=== PATIENT | female | born 1995 | race Caucasian/White ===

== ENCOUNTER 2016-06-29 15:52 | Outpatient (CLI) | payer OTHER ==
[~2016-06-29] VITALS: Ht 157.5 cm; Wt 95.5 kg
[2016-06-29 16:12] VITALS: BP 112/62; PULSE 96; RESP 19
[2016-06-29 16:14] VITALS: Ht 157.5 cm; Wt 95.5 kg
[2016-06-29 18:46] LABS: ADD UMIC NO; URINE BILIRUBIN (Dip) NEGATIVE (NEGATIVE); URINE BLOOD (Dip) NEGATIVE (NEGATIVE); URINE COLOR LT. YELLOW (YELLOW); URINE GLUCOSE (Dip) NEGATIVE (NEGATIVE); URINE KETONES (Dip) NEGATIVE (NEGATIVE); URINE LEUKOCYTE ESTERASE (Dip) NEGATIVE (NEGATIVE); URINE NITRITE (Dip) NEGATIVE (NEGATIVE); URINE TOTAL PROTEIN (Dip) NEGATIVE (NEGATIVE); URINE UROBILINOGEN (Dip) 0.2 E.U./dL (0.1-1.0)
--- NOTE | 2016-06-29 18:58 | PN ---
Date/Time of Note Date/Time of Note DATE: 06/29/16 TIME: 18:48 OB Subjective Subjective Subjective Laboratory Tests Test 06/29/16 16:00 Urine Bilirubin NEGATIVE Urine Clarity CLEAR Urine Color LT. YELLOW Urine Glucose NEGATIVE% Urine Hemoglobin NEGATIVE Urine Ketones NEGATIVE Urine Leukocyte Esterase NEGATIVE Urine Nitrite NEGATIVE Urine Specific [place] 1.020 Urine Total Protein NEGATIVE Urine Urobilinogen 0.2 E.U./dL Urine pH 7.0 June 29, 2016 This is a OB triage consult note The patient came to the triage today is a 21 years old 3 para 2 0. She had both of her deliveries were by section in the past Her due date is 08/09/2006 She is now 34 weeks and 1 day . She came in the triage area complaining of a bloody show and lower abdominal pain On examination she was a well-developed well-nourished lady about 34 weeks Her vital signs were stable Blood pressure 112/62, pulse rate 96 she is describing her pain as 5/10 in intensity. On examination of the abdomen through there were not much of tenderness, lower abdominal area was not tender. She is complaining of slight low back pain Due to complaint of possible bleeding I did a pelvic exam: vulva and vagina was normal and she has a slight white cheesy color discharge No brown or bloody discharge On ultrasound study which was performed biophysical profile was 8 out of 8 NST was reactive Urinalysis were normal culture sensitivity and UA was ordered disposition Due to lack of any evidence of abruption or bleeding patient was reassured and sent home to be seen by her physician in the clinic JYOTI GUAN MD Jun 29, 2016 18:58
--- NOTE | 2016-06-29 18:58 | RADRPT ---
PROCEDURE: US OB. CLINICAL INDICATION: Bleeding TECHNIQUE: Multiple sonographic images of the pelvis were obtained. The images were reviewed on a PACS workstation. COMPARISON: No prior studies are available for comparison. FINDINGS: There is a single live intrauterine . cardiac activity is identified at a rate of 13 3 beats per minute. presentation is cephalic. Placenta is anterior grade tube. Biophysical profile score is as follows: Breathing 2 Movements 2 Tone 2 Fluid volume 2 Amniotic fluid index = 20.1 cm Total biophysical profile score = 8/8 IMPRESSION: Biophysical profile score = 8/8 Borderline polyhydramnios RPTAT: HH .Theodore Myers MD, MD Date Time Electronically viewed and signed by .Theodore Myers MD, on 06/29/2016 18:57 .W/
--- NOTE | 2016-06-29 22:27 | TRIAGE ---
OB Triage Datetime Report Generated by CPN: 06/29/2016 22:27 Datetime: 06/29/2016 20:00 Stage of : OB Triage Labor Evaluation Frequency: Irregular Monitor Mode: External Duration (sec)2399: 50-70 Pattern: Normal: <= 5 Contractions in 10 Minutes Resting Tone [place]: Relaxed Heart Rate FHR Baseline Rate: 130 Monitor Mode: External US Variability: Moderate 6-25 bpm Accelerations: 15X15 Decelerations: None Category: Category I Pain Presence: None/Denies Datetime: 06/29/2016 19:01 Labor Evaluation Frequency: IRREG Monitor Mode: External Duration (sec)2399: 60-90 Pattern: Normal: <= 5 Contractions in 10 Minutes Resting Tone [place]: Relaxed Heart Rate FHR Baseline Rate: 130 Monitor Mode: External US Variability: Moderate 6-25 bpm Accelerations: 15X15 Decelerations: None Category: Category I Pain Presence: None/Denies Datetime: 06/29/2016 18:14 Pain Assessment Comments: PT. DENIES PAIN AT THIS TIME Vaginal Exam Dilatation (cms): 0.0 Effacement (%): 0 Station: -3 Exam By: DR. FOROOHAR Datetime: 06/29/2016 18:06 Labor Evaluation Frequency: IRREG Duration (sec)2399: 40-80 Pattern: Normal: <= 5 Contractions in 10 Minutes Resting Tone [place]: Relaxed Heart Rate FHR Baseline Rate: 130 Monitor Mode: External US Variability: Moderate 6-25 bpm Accelerations: 15X15 Decelerations: None Category: Category I Pain Presence: None/Denies Datetime: 06/29/2016 16:53 Labor Evaluation Frequency: X1 Monitor Mode: External Duration (sec)2399: 50 Pattern: Normal: <= 5 Contractions in 10 Minutes Resting Tone [place]: Relaxed Heart Rate FHR Baseline Rate: 140 Monitor Mode: External US Variability: Moderate 6-25 bpm Accelerations: 15X15 Decelerations: None Category: Category I Datetime: 06/29/2016 16:27 EGA: 34.1 Datetime: 06/29/2016 16:20 Time of Arrival: 06/29/2016 15:49 Arrived By: Ambulatory Arrived From: Home Chief Complaint: BLOODY SHOW; LEFT LOWER ABDOMINAL PAIN Movement: Present Contractions: Denies/Absent Rupture of Membranes: Denies Vaginal Bleeding: Normal Show Vaginal Discharge: Denies Recent Sexual Intercouse: Denies Abdominal Trauma: Not Applicable Patient Complaints: Cramping Additional Patient Complaints: SVE 0/0/-3, INTACT BY DR. GUAN, BPP, U/A, C_S, PLACENTA LOCATIO N Provider Notified: ROGE Initial Plan: TOCO/US Datetime: 06/29/2016 16:10 Assessment Type: Admission Assessment Maternal Assessment Level of Consciousness: Fully Conscious DTR's/Clonus: DTRs 2+; No Clonus Headache: Denies Blurred Vision: No Respiratory Effort: Unlabored; Regular Rhythm; Equal Expansion Breath Sounds, Left: Clear and Equal Breath Sounds, Right: Clear and Equal Nausea/Vomiting: Denies RUQ Epigastric Pain: Denies Lower Extremities Edema: None Degree: None Upper Extremities Edema: None Degree: None Facial Edema: None Fall Risk Assessment History of Falling: (0) No Secondary Diagnosis: (0) No Ambulatory Aid: (0) Bedrest/Nurse Assist IV Therapy: (0) No Gait: (0) Normal/Bedrest/Immobile Mental Status: (0) Oriented to Own Ability Fall Score: 0 Fall Risk Score Definition: No Risk: No action required Datetime: 06/29/2016 16:04 Temperature Route: Oral Pain Assessment Pain Scale: 5 Pain Presence: Intermittent Pain Type: Pressure Pain Location: Abdomen (Annotations: LEFT LOWER ABDOMEN) Pain Relief Measures: Comfort Measures Datetime: 06/29/2016 15:59 Stage of : OB Triage
== END 2016-06-29 22:08 | disposition home or self-care (01) ==
LOC: OBT 15:52 → L-D 15:53 → OBT 22:08
DX: O46.93 Antepartum hemorrhage, unspecified, third trimester (principal); R10.30 Lower abdominal pain, unspecified; M54.5 Low back pain; Z3A.34 34 weeks gestation of pregnancy
CPT/HCPCS: 76818; 81003; 87086; Z7500; G0463

== ENCOUNTER 2016-06-30 13:10 | Outpatient (CLI) | payer OTHER ==
[~2016-06-30] VITALS: Ht 157.5 cm; Wt 93.8 kg
[2016-06-30 13:54] VITALS: BP 109/63; PULSE 83; RESP 18; Ht 157.5 cm; Wt 93.8 kg
--- NOTE | 2016-06-30 14:53 | RADRPT ---
PROCEDURE: US OB. CLINICAL INDICATION: Low PHIL TECHNIQUE: Transabdominal views of the pelvis are available for review. COMPARISON: Obstetrical ultrasound from 06/29/2016 FINDINGS: There is a single intrauterine gestation in a breech position. The heart rate is present at 139 bpm. The placenta is fundal and right lateral in location. There is no evidence of placenta previa or a placental abruption. The PHIL measures 15.7 cm. RPTAT: AA IMPRESSION: Normal PHIL of 15.7 cm, compared with an PHIL of 20.1 cm on the prior ultrasound study from 06/29/2016 . Breech presentation. Physician Homa Date Time Electronically viewed and signed by Physician Homa on 06/30/2016 14:52 /
[2016-07-01] MEDS ORDERED: PRENAT PO (21:09)
--- NOTE | 2016-09-26 16:51 | QN ---
Documentation Comment rule out labor HAM CABRERA MD September 26, 2016 16:51
== END 2016-06-30 16:30 | disposition home or self-care (01) ==
LOC: L-D 13:10 → OBT 13:10
PROVIDERS: ATTEND Obstetrics & Gynecology
DX: O47.00 False labor before 37 completed weeks of gestation, unspecified trimester (principal); Z3A.00 Weeks of gestation of pregnancy not specified
CPT/HCPCS: 76815; Z7500; G0463

== ENCOUNTER 2016-07-01 19:38 | Outpatient (CLI) | payer OTHER ==
[~2016-07-01] VITALS: Ht 157.5 cm; Wt 93.2 kg
[2016-07-01 21:01] VITALS: Ht 157.5 cm; Wt 93.2 kg
[2016-07-01 21:05] VITALS: BP 108/58; PULSE 93; RESP 16
[2016-07-01] MEDS ORDERED: PRENAT PO (21:09)
--- NOTE | 2016-07-01 22:23 | PN ---
Date/Time of Note Date/Time of Note DATE: 07/01/16 TIME: 22:16 OB Subjective Subjective Subjective Patient came w c/o back pain that is constant. She has had 2 prior c/d and is 34+wks gestation today; baby is breech no ctx or bleeding or lof, good FM OB Objective Objective Objective Abdomen- gravid, n/t SVE- l/c/p FHT- Cat I Mcfall- no ctx Abdomen: WNL Cervical Dilatation: None Effacement: 0% Station: -3 Membranes: Intact Accelerations: Accelerations Present Decelerations: No Decelerations Varibility: Moderate Contractions on Admission: None OB Assessment/Plan Other Assessment: 21 yo P2 @ 34 wks, prior c/d x 2, likely muscular pain - reassuring status - not in labor Other plan: d/c home labor precautions KOLBY DOUGLAS MD Jul 01, 2016 22:22
== END 2016-07-01 21:33 | disposition home or self-care (01) ==
LOC: OBT 19:38 → L-D 19:42 → OBT 21:33
PROVIDERS: ATTEND Obstetrics & Gynecology
DX: O26.893 Other specified pregnancy related conditions, third trimester (principal); M54.9 Dorsalgia, unspecified; Z3A.34 34 weeks gestation of pregnancy
CPT/HCPCS: G0463

== ENCOUNTER 2016-08-02 05:58 | Inpatient (IN) | payer OTHER ==
[~2016-08-02 05:58] MED LIST: PRENAT PO
[2016-08-02] MEDS ORDERED: LACTATED RINGER'S 1,000 ML IV SCH (07:29)
[2016-08-02] MEDS ORDERED: MISOPROSTOL 200 MCG TAB PR PRN ×2 (07:30→14:00)
[2016-08-02] MEDS ORDERED: METHYLERGONOVINE 0.2 MG INJ IM PRN ×2 (07:30→14:00)
[2016-08-02] MEDS ORDERED: CEFAZOLIN 2 GM/50 ML (PMX) 50 ML IVPB SCH (07:30)
[2016-08-02] MEDS ORDERED: CARBOPROST 250 MCG INJ IM PRN ×2 (07:30→14:00)
[2016-08-02] MEDS ORDERED: OXYTOCIN 30 UNITS/LR 500 ML IV PRN ×2 (07:30→14:00)
[2016-08-02 07:54] LABS: ADD SCAN DIFF NO
[2016-08-02 08:17] LABS: INR 0.98
[2016-08-02 08:18] LABS: PARTIAL THROMBOPLASTIN TIME 30.8 Sec (25.0-35.0)
[2016-08-02 08:21] LABS: BARBITURATES Negative (NEGATIVE); BASOPHILS % 0.2 % (0.0-2.0); BENZODIAZEPINES Negative (NEGATIVE); EOSINOPHILS # 0.1 10^3/ul (0.0-0.5); EOSINOPHILS % 1.1 % (0.0-7.0); HEMATOCRIT 35.5 % (37.0-47.0); HEMOGLOBIN 12.1 g/dl (12.0-16.0); LYMPHOCYTES # 1.6 10^3/ul (0.8-2.9); LYMPHOCYTES % 27.7 % (15.0-51.0); MEAN CORPUSCULAR HEMOGLOBIN 30.9 pg (29.0-33.0); MEAN CORPUSCULAR HGB CONC 34.1 g/dl (32.0-37.0); MEAN CORPUSCULAR VOLUME 90.6 fl (82.0-101.0); MONOCYTE # 0.4 10^3/ul (0.3-0.9); MONOCYTES % 6.2 % (0.0-11.0); NEUTROPHIL # 3.7 10^3/ul (1.6-7.5); NEUTROPHILS % 64.6 % (39.0-77.0); PLATELET COUNT 224 10^3/UL (140-415); RED BLOOD COUNT 3.92 10^6/ul (4.20-5.40); RED CELL DISTRIBUTION WIDTH 13.2 % (11.5-14.5); WHITE BLOOD COUNT 5.7 10^3/ul (4.8-10.8)
[2016-08-02] MEDS ORDERED: METOCLOPRAMIDE 10 MG INJ ONE (08:31)
[2016-08-02] MEDS ORDERED: ONDANSETRON 4 MG INJ ONE (08:31)
[2016-08-02] MEDS ORDERED: OXYTOCIN 10 UNIT INJ ONE (08:31)
[2016-08-02] MEDS ORDERED: OXYTOCIN 30 UNITS/LR 500 ML IV ONE (08:31)
[2016-08-02] MEDS ORDERED: EPHEDrine SULFATE 50 MG/5 ML SYG ONE (08:31)
[2016-08-02 08:35] LABS: CANNABINOIDS Negative (NEGATIVE); COCAINE Negative (NEGATIVE); OPIATES Negative (NEGATIVE)
[2016-08-02] MEDS ORDERED: morphine SULFATE/PF (10 MG/10 ML) INJ ONE (09:10)
--- NOTE | 2016-08-02 09:28 | HP ---
Date/Time of Note Date/Time of Note DATE: 08/02/16 TIME: 09:05 OB - History Hx of Present Free Text/Dictation 21 years old female 39 weeks with EDC August 09, 2016, history of 2 previous admitted to [facility] [place] labor and delivery being prepared for repeat for the third time This patient had limited visit to [facility] and has a history of substance abuse denies using illicit drug once she found out that she is Past history menarche at age 11 history of total of 4 pregnancies including the present one induced 2 previous sectio Allergies denies allergy to any known medication Social positive history for using marijuana crystal meth amphetamine, and so mother elicit drugs Review of system within normal Laboratory, urine test for for drug negative Physical examination 5 feet 2 212 pounds Head ears nose and throat neck Neck supple no thyromegaly Lungs, clear to P&A, Heart, normal sinus rhythm no murmur, Abdomen, fundal height 37 cm from symphysis pubis, heart rate category 1 Pelvic examination, deferred Extremities, no edema no varicosities no edema no varicosities Impression, intrauterine at 39 weeks, history of 2 previous undergoing repeat for the third time patient is aware of complication of the surgery including bowel bladder injury infection wound hematoma, hemorrhage, and she is willing to go ahead with this procedure Estimated Due Date: Aug 09, 2016 : 4 Para: 2 Therapeutic : 1 Care: Limited Care Obstetrical Complications: None Medical Complications: None Past Family/Social History * Past Medical, Surgical, Family and Obstetric Histories reviewed from chart. Rubella: immune RPR/VDRL: Negative GBS Status: Negative HBsAG: Negative OB Admission Exam Physical Exam HEENT: WNL Heart: Rhythm Normal Abdomen: WNL Extremities: Normal Reflexes: Normal Cervical Dilatation: None Effacement: 0% Station: -1 Membranes: Intact Heart Rate: 130's Accelerations: Accelerations Present Decelerations: No Decelerations Varibility: Minimum Intensity: Mild Last 72 hours Lab Results CBC & BMP 08/02/16 07:15 OB Assessment/Plan Reason for admission: section, other (39 weeks history of 2 previous ) Plan: Section Labs Hematology Labs Hematology Test 08/02/16 07:15 Basophils # 0.010^3/ul (0.0-0.1) Basophils % 0.2% (0.0-2.0) Eosinophils # 0.110^3/ul (0.0-0.5) Eosinophils % 1.1% (0.0-7.0) Hematocrit 35.5% (37.0-47.0) Hemoglobin 12.1g/dl (12.0-16.0) Lymphocytes # 1.610^3/ul (0.8-2.9) Lymphocytes % 27.7% (15.0-51.0) Mean Corpuscular Hemoglobin 30.9pg (29.0-33.0) Mean Corpuscular Hemoglobin Concent 34.1g/dl (32.0-37.0) Mean Corpuscular Volume 90.6fl (82.0-101.0) Mean Platelet Volume 10.0fl (7.4-10.4) Monocytes # 0.410^3/ul (0.3-0.9) Monocytes % 6.2% (0.0-11.0) Neutrophils # 3.710^3/ul (1.6-7.5) Neutrophils % 64.6% (39.0-77.0) Nucleated Red Blood Cells # 0.010^3/ul (0.0-0.0) Nucleated Red Blood Cells % 0.0/100WBC (0.0-0.0) Platelet Count 42276^3/UL (140-415) Red Blood Count 3.9210^6/ul (4.20-5.40) Red Cell Distribution Width 13.2% (11.5-14.5) White Blood Count 5.710^3/ul (4.8-10.8) Coagulation Labs: Coagulation Test 08/02/16 07:15 Activated Partial Thromboplast Time 30.8Sec (25.0-35.0) INR International Normalized Ratio 0.98 Prothrombin Time 13.0Sec (12.2-14.2) Prothrombin Time Ratio 1.0 Labs Labs Test 08/02/16 07:15 Hepatitis B Surface Antigen NEGATIVE (NEGATIVE) HAM CABRERA MD Aug 02, 2016 09:17
[2016-08-02] MEDS ORDERED: MIDAZOLAM 1 MG/ML 2 ML INJ ONE (10:06)
[2016-08-02] MEDS ORDERED: morphine SULFATE/PF (10 MG/10 ML) INJ SPINAL ONE (13:00)
[2016-08-02] MEDS ORDERED: KETOROLAC 30 MG INJ IV PRN (13:00)
[2016-08-02] MEDS ORDERED: DIPHENHYDRAMINE 50 MG INJ IV PRN (13:00)
[2016-08-02] MEDS ORDERED: EPHEDrine SULFATE 50 MG/5 ML SYG IV PRN (13:00)
[2016-08-02] MEDS ORDERED: morphine 2 MG INJ IV PRN ×2 (13:00)
[2016-08-02] MEDS ORDERED: HYDROmorphONE 1 MG/ML SYG IV PRN ×2 (13:00)
[2016-08-02] MEDS ORDERED: ONDANSETRON 4 MG INJ IV PRN (13:00)
[2016-08-02] MEDS ORDERED: NALOXONE (0.4 MG/ML) INJ IV PRN (13:00)
[2016-08-02] MEDS ORDERED: CEFAZOLIN 1 GM/50 ML (PMX) 50 ML IVPB SCH (14:00)
[2016-08-02] MEDS ORDERED: ACETAMINOPHEN/CODEINE #3 TAB PO PRN (14:00)
[2016-08-02] MEDS ORDERED: LANOLIN 7 GM TUBE TOP PRN (14:00)
[2016-08-02] MEDS ORDERED: OXYCODONE/ACETAMINOPHEN (5/325) TAB PO PRN (14:00)
[2016-08-02] MEDS: OXYTOCIN 30 UNITS/LR 500 ML IV SCH ×3 (14:25→22:50)
[2016-08-02 16:15] VITALS: BP 119/64; PULSE 91; RESP 19
[2016-08-02 16:45] VITALS: BP 103/61; PULSE 82; RESP 18
[2016-08-02] MEDS: IBUPROFEN 600 MG TAB PO SCH (18:00)
[2016-08-02 19:30] VITALS: BP 102/55; PULSE 90; RESP 18
[2016-08-02] MEDS: SENNA/DOCUSATE NA (8.6MG/50MG) TAB PO SCH (21:22)
[2016-08-03] MEDS: OXYTOCIN 30 UNITS/LR 500 ML IV SCH ×2 (03:18→05:40)
[2016-08-03 04:00] VITALS: BP 99/53; PULSE 86; RESP 19
[2016-08-03] MEDS: IBUPROFEN 600 MG TAB PO SCH ×4 (06:00→17:39)
[2016-08-03] MEDS ORDERED: LACTATED RINGER'S 1,000 ML IV SCH (06:30)
[2016-08-03 08:00] VITALS: BP 101/59; PULSE 83; RESP 18
[2016-08-03 08:02] LABS: ADD SCAN DIFF NO
[2016-08-03 08:11] LABS: BASOPHILS % 0.1 % (0.0-2.0); EOSINOPHILS # 0.1 10^3/ul (0.0-0.5); EOSINOPHILS % 0.7 % (0.0-7.0); HEMATOCRIT 28.1 % (37.0-47.0); HEMOGLOBIN 9.9 g/dl (12.0-16.0); LYMPHOCYTES # 1.4 10^3/ul (0.8-2.9); LYMPHOCYTES % 19.6 % (15.0-51.0); MEAN CORPUSCULAR HEMOGLOBIN 31.8 pg (29.0-33.0); MEAN CORPUSCULAR HGB CONC 35.2 g/dl (32.0-37.0); MEAN CORPUSCULAR VOLUME 90.4 fl (82.0-101.0); MONOCYTE # 0.5 10^3/ul (0.3-0.9); MONOCYTES % 6.8 % (0.0-11.0); NEUTROPHIL # 5.2 10^3/ul (1.6-7.5); NEUTROPHILS % 72.5 % (39.0-77.0); PLATELET COUNT 203 10^3/UL (140-415); RED BLOOD COUNT 3.11 10^6/ul (4.20-5.40); WHITE BLOOD COUNT 7.2 10^3/ul (4.8-10.8)
[2016-08-03] MEDS: SENNA/DOCUSATE NA (8.6MG/50MG) TAB PO SCH ×2 (09:07→20:48)
--- NOTE | 2016-08-03 11:54 | PN ---
Date/Time of Note Date/Time of Note DATE: 08/03/16 TIME: 11:52 OB Subjective Subjective Subjective Post day1 Vital signs stable afebrile abdomen soft uterus firm incision dry lochia moderate bowel sounds present ambulation recommended extremities normal Laboratory Tests Test 08/03/16 07:35 Basophils # 0.010^3/ul Basophils % 0.1% Eosinophils # 0.110^3/ul Eosinophils % 0.7% Hematocrit 28.1% Hemoglobin 9.9g/dl Lymphocytes # 1.410^3/ul Lymphocytes % 19.6% Mean Corpuscular Hemoglobin 31.8pg Mean Corpuscular Hemoglobin Concent 35.2g/dl Mean Corpuscular Volume 90.4fl Mean Platelet Volume 10.0fl Monocytes # 0.510^3/ul Monocytes % 6.8% Neutrophils # 5.210^3/ul Neutrophils % 72.5% Nucleated Red Blood Cells # 0.010^3/ul Nucleated Red Blood Cells % 0.0/100WBC Platelet Count 36178^3/UL Red Blood Count 3.1110^6/ul Red Cell Distribution Width 13.0% White Blood Count 7.210^3/ul Current Medications Medications (Trade) Dose Ordered Sig/Liset Route PRN Reason Start Time Stop Time Status Last Admin Dose Admin Cefazolin Sodium/ Dextrose 50 ml @ 100 mls/hr ONCE IVPB 08/02/16 07:30 08/02/16 13:43 DC Oxytocin/Lactated Ringer's 500 ml @ 0 mls/hr ONCE PRN IV For Hemorrhage Management 08/02/16 07:30 08/02/16 13:43 DC 08/02/16 10:53 Methylergonovine Maleate (Methergine) 0.2 mg ONCE PRN IM VAGINAL BLEEDING 08/02/16 07:30 08/02/16 13:43 DC Carboprost Tromethamine (Hemabate) 250 mcg ONCE PRN IM VAGINAL BLEEDING 08/02/16 07:30 08/02/16 13:43 DC Misoprostol 1000 mcg 1,000 mcg ONCE PRN IN VAGINAL BLEEDING 08/02/16 07:30 08/02/16 13:43 DC Lactated Ringer's (Lr) 1,000 ml @ 125 mls/hr Q8H IV 08/02/16 07:29 08/02/16 13:43 DC 08/02/16 07:43 Ephedrine Sulfate 50 mg 50 mg STK-MED ONCE .ROUTE 08/02/16 08:31 08/02/16 08:32 DC Oxytocin/Lactated Ringer's 500 ml @ ud STK-MED ONCE IV 08/02/16 08:31 08/02/16 08:32 DC Ondansetron HCl (Zofran Inj) 4 mg STK-MED ONCE .ROUTE 08/02/16 08:31 08/02/16 08:32 DC Metoclopramide HCl (Reglan) 10 mg STK-MED ONCE .ROUTE 08/02/16 08:31 08/02/16 08:32 DC Oxytocin (Oxytocin) 10 units STK-MED ONCE .ROUTE 08/02/16 08:31 08/02/16 08:32 DC Morphine Sulfate (Duramorph) 10 mg STK-MED ONCE .ROUTE 08/02/16 09:10 08/02/16 09:11 DC Midazolam HCl (Versed) 2 mg STK-MED ONCE .ROUTE 08/02/16 10:06 08/02/16 10:07 DC Naloxone HCl (Narcan) 0.1 mg Q2M PRN IV FOR RESP RATE 8 OR LESS 08/02/16 13:00 08/03/16 12:59 Ketorolac Tromethamine (Toradol) 30 mg Q6H PRN IV PAIN 08/02/16 13:00 08/03/16 12:59 08/03/16 04:35 Morphine Sulfate (morphine) 2 mg Q3H PRN IV PAIN LEVEL 1-5 08/02/16 13:00 08/03/16 12:59 Morphine Sulfate (morphine) 4 mg Q3H PRN IV PAIN LEVEL 6-10 08/02/16 13:00 08/03/16 12:59 Hydromorphone HCl (Dilaudid) 0.2 mg Q3H PRN IV PAIN LEVEL 1-5 08/02/16 13:00 08/03/16 12:59 Hydromorphone HCl (Dilaudid) 0.4 mg Q3H PRN IV PAIN LEVEL 6-10 08/02/16 13:00 08/03/16 12:59 Diphenhydramine HCl (Benadryl) 25 mg Q6H PRN IV ITCHING 08/02/16 13:00 08/03/16 12:59 Ondansetron HCl (Zofran Inj) 4 mg Q6H PRN IV NAUSEA AND/OR VOMITING 08/02/16 13:00 08/03/16 12:59 Morphine Sulfate (Duramorph) 0.3 mg GIVEN ANESTH ONCE SPINAL 08/02/16 13:00 08/02/16 13:01 DC Ephedrine Sulfate 5 mg [id number] PRN IV BLOOD PRESSURE SUPPORT 08/02/16 13:00 Acetaminophen/ Codeine Phosphate (Tylenol No.3) 1 tab Q4H PRN PO PAIN LEVEL 4-6 08/02/16 14:00 Acetaminophen/ Codeine Phosphate (Tylenol No.3) 2 tab Q4H PRN PO PAIN LEVEL 7-10 08/02/16 14:00 Oxycodone/ Acetaminophen (Percocet (5/ 325)) 1 tab Q4H PRN PO PAIN LEVEL 4-6 08/02/16 14:00 Oxycodone/ Acetaminophen (Percocet (5/ 325)) 2 tab Q4H PRN PO PAIN LEVEL 7-10 08/02/16 14:00 Ibuprofen (Motrin) 600 mg Q6 PO 08/02/16 18:00 Simethicone (Mylicon) 160 mg Q8H PRN PO DISTENSION/GAS/BLOATING 08/02/16 14:00 Senna/Docusate Sodium (Senokot-S) 1 tab BID PO 08/02/16 21:00 08/03/16 09:07 Lanolin ([id number]) 1 applic BEDSIDE MEDICATION PRN TOP BEDSIDE FOR RENATO TO NIPPLES 08/02/16 14:00 08/03/16 04:34 Diphtheria/ Tetanus/Acell Pertussis 0.5 ml 0.5 ml ONCE ONCE IM* 08/05/16 09:00 08/05/16 09:01 Oxytocin/Lactated Ringer's 500 ml @ 0 mls/hr ONCE PRN IV For Hemorrhage Management 08/02/16 14:00 Methylergonovine Maleate (Methergine) 0.2 mg ONCE PRN IM VAGINAL BLEEDING 08/02/16 14:00 Carboprost Tromethamine (Hemabate) 250 mcg ONCE PRN IM VAGINAL BLEEDING 08/02/16 14:00 Misoprostol 1000 mcg 1,000 mcg ONCE PRN IN VAGINAL BLEEDING 08/02/16 14:00 Cefazolin Sodium 50 ml @ 100 mls/hr ONCE IVPB 08/02/16 14:00 08/02/16 14:29 DC 08/02/16 18:19 Oxytocin/Lactated Ringer's 500 ml @ 125 mls/hr Q4H IV 08/02/16 13:40 08/03/16 03:18 Lactated Ringer's (Lr) 1,000 ml @ 125 mls/hr Q8H IV 08/03/16 06:30 08/03/16 07:29 HAM CABRERA MD Aug 03, 2016 11:54
--- NOTE | 2016-08-03 12:43 | OPR ---
DATE OF OPERATION: 08/03/2016 PREOPERATIVE DIAGNOSES: 1. Intrauterine at 39 weeks' gestation. 2. History of 2 previous sections. POSTOPERATIVE DIAGNOSES: 1. Intrauterine at 39 weeks' gestation. 2. History of 2 previous sections. OPERATION PERFORMED: Repeat transverse low cervical section. SURGEON: Ham Frances MD MARKETING SALES SUPERVISOR: Dr. Gonzalez ANESTHESIA: Spinal. ANESTHESIOLOGIST: Dr. Lagos FINDINGS: Live baby girl, 's of 8 and 9. Baby weighed 7 pounds 3 ounces. DETAILS OF THE PROCEDURE: Under satisfactory spinal anesthesia the patient was prepped and draped a nd placed in the supine position, tilted to the left. A Pfannenstiel incision was made, carried thr ough the subcutaneous tissue. Bleeders were brought under control with electrocautery. Fascia was incised to the length of the incision. Rectus muscle was divided in the midline. Peritoneum expose d, entered through a transverse incision. Exploration of the abdomen revealed a gravid uterus at te rm, extremely thinned out lower segment of the uterus, normal-appearing tubes and ovaries. A bladde r flap was developed. A transverse incision was made in the lower segment of the uterus. Amniotic sac ruptured. Light meconium stained amniotic fluid noted. Live baby girl was delivered from an un engaged vertex. Nasal oropharyngeal suction was performed. Baby was handed to the team fo r immediate attention. The patient received 20 units of Pitocin. Placenta delivered manually intac t. Uterine cavity was cleaned with a wet sponge and drainage established. Uterus was closed in 2 l mo using Monocryl #1 in continuous fashion. Peritoneal cavity was irrigated with warm saline. S ponge, needle and instruments were reported to be correct. Abdominal peritoneum was closed with 2-0 chromic catgut continuously. Rectus muscle was approximated with a few interrupted 2-0 chromic cat gut. Fascia was closed with #1 PDS in a continuous fashion. Subcutaneous tissue was approximated w ith interrupted 2-0 chromic catgut. Skin was closed with bob. Estimated blood loss was 600 mL. Urine bag contained 200 mL of clear urine. Patient tolerated the procedure well, was transferred to the recovery room in good condition. Dictated By: HAM INGRAM/CHANO Conf#: [id number] DID#: [id number]
[2016-08-03 16:00] VITALS: BP 108/59; PULSE 82; RESP 18
[2016-08-03 19:52] VITALS: BP 110/67; PULSE 106; RESP 18
[2016-08-03] MEDS: OXYCODONE/ACETAMINOPHEN (5/325) TAB PO PRN (19:52)
[2016-08-04] MEDS: OXYCODONE/ACETAMINOPHEN (5/325) TAB PO PRN ×3 (03:36→22:57)
[2016-08-04 04:13] VITALS: BP 112/56; PULSE 87; RESP 18
[2016-08-04] MEDS: IBUPROFEN 600 MG TAB PO SCH ×5 (05:42→23:53)
[2016-08-04 08:10] VITALS: BP 97/54; PULSE 88; RESP 20
[2016-08-04] MEDS: ACETAMINOPHEN/CODEINE #3 TAB PO PRN ×2 (09:10→09:31)
[2016-08-04] MEDS: SENNA/DOCUSATE NA (8.6MG/50MG) TAB PO SCH ×2 (09:10→20:57)
--- NOTE | 2016-08-04 09:46 | PN ---
Date/Time of Note Date/Time of Note DATE: 08/04/16 TIME: 09:45 OB Subjective Subjective Subjective Post day 2 Vital signs stable afebrile abdomen soft uterus firm incision dry healing well lochia normal had normal bowel movement plan of a.m. discharge discussed with the patient HAM CABRERA MD Aug 04, 2016 09:46
[2016-08-04 16:30] VITALS: BP 140/94; PULSE 90; RESP 20
[2016-08-04 18:26] VITALS: BP 117/72; PULSE 79; RESP 20
[2016-08-04 19:40] VITALS: BP 116/61; PULSE 92; RESP 20
[2016-08-05 04:30] VITALS: BP 101/65; PULSE 85; RESP 18
[2016-08-05] MEDS: IBUPROFEN 600 MG TAB PO SCH ×2 (06:09→11:49)
[2016-08-05 07:45] VITALS: BP 106/58; PULSE 84; RESP 18
[2016-08-05] MEDS ORDERED: DIPHTH/TET/ACEL PERTUSS (ADULT) 0.5 ML VIAL IM* ONE ×2 (09:00→12:00)
[2016-08-05] MEDS: SENNA/DOCUSATE NA (8.6MG/50MG) TAB PO SCH (10:14)
--- NOTE | 2016-08-05 11:06 | DS ---
Date/Time of Note Date/Time of Note DATE: 08/05/16 TIME: 11:03 Obstetrical Discharge Record Final Diagnosis Final Diagnosis: Term delivered Section Section: Repeat Condition on Discharge Physical Assessment Last Vitals: Vital signs are stable, this is a 21 years old female was admitted at 39 weeks of with a history of 2 previous underwent repeat for the third time her postoperative course in the hospital uneventful did not spike temperature or having problem with or GI system on the day of discharge incision inspected found free of inflammation and infection patient was discharged home with a follow-up instructions prescriptions of analgesic and multivitamin recommended to make appointment in 4 days with the clinic to discontinue bob. Voiding: Yes Bowel Movement: Yes Breast: Soft, non-tender, Filling Fundus: Firm Abdomen and Incision: Healing well dry free of inflammation Calf Tenderness: No Patient Condition: Good HAM CABRERA MD Aug 05, 2016 11:06
--- NOTE | 2016-08-05 11:11 | PD.PPDC ---
PRINCIPAL TECHNICAL ARCHITECT Discharge Instruction Condition Patient Condition: Good Diet Diet: Resume Regular Diet Activity/Restrictions Activity: Normal Activity May Shower Restrictions: No Exercising No Lifting No Driving No Sexual Activity Nothing in the Vagina No [place] No Tampons, douche Wound/Drain Care Instructions Wound/Drain Care Instructions: Remove Steri Strips in 1 week Follow-up Follow-up with Physician: 4, Day/Days Provider Information: Appointment in 4 days to discontinue bob Return to clinic for STUD MASTER/MISTRESS Instructions: Fever greater than 101 Chills Worsening abdominal pain Excessive Vaginal Bleeding More than 2 pads per hour Unable to tolerate diet OB Instructions: Breast Tenderness Blurried Vision Headache Surgical Instructions: Incisional Drainage Incisional Redness HAM CABRERA MD Aug 05, 2016 11:11
== END 2016-08-05 13:30 | disposition home or self-care (01) | DRG 766 ==
LOC: L-D 05:58 → PP1 16:47
PROVIDERS: ADMIT Obstetrics & Gynecology; ATTEND Obstetrics & Gynecology
PROC: 10D00Z1 Extraction of Products of Conception, Low, Open Approach (ICD-10-PCS; principal; 2016-08-02 09:00)
DX: O34.211 Maternal care for low transverse scar from previous cesarean delivery (principal); Z37.0 Single live birth; Z3A.39 39 weeks gestation of pregnancy
CPT/HCPCS: 80307; 85025; 85610; 85730; 86592; 86850; 86900; 86901; 87340; 90715; 94760; 99464; J0690; J1885; J2210; J2250; J2274; J2405; J2590; J2765; J7120

== ENCOUNTER 2016-08-14 22:33 | Emergency (ER) | payer OTHER ==
[~2016-08-14] VITALS: Wt 88.0 kg
[2016-08-15] MEDS ORDERED: CEPH-443 PO (00:58)
--- NOTE | 2016-08-15 02:30 | ERD ---
ER Documentation Chief Complaint Date/Time DATE: 08/15/16 TIME: 02:25 Chief Complaint C SECTION 12 DAYS AGO BOB REMOVED 5 DAYS AGO . SOME DRAINAGE NO FEVER HPI Patient is a 21-year-old female who presents to the emergency department for concerns of a wound infection. Patient had a 12 days ago. Patient states she saw her NETWORK ARCHITECT MANAGER 5 days ago and had her bob removed at that time. Patient states that she did notice that her wound was slightly open however this is not concerning to her NETWORK ARCHITECT MANAGER at the time of her visit. Patient presents today with concerns of her wound opening up. Patient denies any fevers , chills, nausea, vomiting, chest pain, shortness of breath or loss of consciousness. Patient states that she does have some mild pelvic discomfort. Her pain is worse with certain movements and with ambulating. Patient denies any swelling, warmth, active drainage to her incision site. Patient is currently breast-feeding her . ROS All systems reviewed and are negative except as per history of present illness. Medications Home Meds Active Scripts Cephalexin* (Keflex*) 500 Mg Capsule, 500 MG PO QID for 7 Days, CAP Prov:FREDRICK ADAIR PA-C 08/15/16 Reported Medications Multivit/Min/Fol Ac/Iron/Pren* ( S*) 1 Tab Tab, 1 TAB PO DAILY, TAB 07/01/16 Allergies Allergies: Coded Allergies: No Known Allergy (Unverified , 06/30/16) PMhx/Soc Hx Alcohol Use: No Hx Substance Use: No Hx Tobacco Use: No Smoking Status: Never smoker Physical Exam Vitals Vital Signs Date Time Temp Pulse Resp B/P Pulse Ox O2 Delivery O2 Flow Rate FiO2 08/14/16 22:40 97.8 66 21 117/55 98 Physical Exam GENERAL: Well-developed, well-nourished female. Appears in no acute distress. HEAD: Normocephalic, atraumatic. EYES: Pupils are equally reactive bilaterally. EOMs grossly intact. No conjunctival erythema. ENT: Moist mucous membranes. No uvula deviation. No kissing tonsils. NECK: Supple. No meningismus. Normal range of motion of the neck. LUNG: Clear to auscultation bilaterally. No rhonchi, wheezing, rales or coarse breath sounds. HEART: Regular rate and rhythm. No murmurs, rubs or gallops. ABDOMEN: 10 cm horizontal linear incision noted above the pubic symphysis. 1 cm area of wound dehiscence noted. Slight serosanguineous drainage noted from the affected area. No warmth. No surrounding erythema. No swelling. No fluctuance. No induration. Soft, nontender, and nondistended. Positive bowel sounds in all four quadrants. No rebound tenderness, no guarding. (-) McBurney's point tenderness. No CVA tenderness. BACK: No midline tenderness. EXTREMITIES: Equal pulses bilaterally. No peripheral clubbing, cyanosis or edema. No unilateral leg swelling. NEUROLOGIC: Alert and oriented. Moving all four extremities without any difficulty. Normal speech. Steady gait. SKIN: Normal color. Warm and dry. See abdomen PE findings. Procedures/MDM MEDICAL DECISION MAKING: This is a 21-year-old female who presents to the ED for concerns of a wound infection status post approximately 12 days ago.. Vital signs were reviewed. Patient is afebrile. Patient was not hypoxic. Physical exam findings suggested small area of wound dehiscence. Patient's skin was not erythematous, warm, swollen. Patient denies any fevers, chills. Given that wound dehiscence was noted on physical exam, patient affected area was closed with Steri-Strips. At this time, patient presentation is most consistent with surgical wound complication. At this time, patient will be treated prophylactically with Keflex, to prevent any type of infection from progressing. Low suspicion for large seroma, cellulitis, abscess, deep space infection. PRESCRIPTIONS: Keflex DISCHARGE: At this time, the patient is stable for discharge and outpatient management. Patient was advised to return to the emergency department or follow-up with her NETWORK ARCHITECT MANAGER in 2 days for wound recheck. Patient is advised to return sooner for any new or worsening symptoms or concerns in regards to her wound including fevers, chills, warmth, swelling, redness, severe pain. The patient and/or family expressed understanding of and agreement with this plan. All questions were answered. Home care instructions were provided. Departure Diagnosis: Primary Impression: section wound complication Condition: Stable Patient Instructions: Post Op Wound Check, Infection Referrals: COMMUNITY CLINICS YOU HAVE RECEIVED A MEDICAL SCREENING EXAM AND THE RESULTS INDICATE THAT YOU DO NOT HAVE A CONDITION THAT REQUIRES URGENT TREATMENT IN THE EMERGENCY DEPARTMENT. FURTHER EVALUATION AND TREATMENT OF YOUR CONDITION CAN WAIT UNTIL YOU ARE SEEN IN YOUR DOCTORS OFFICE WITHIN THE NEXT 1-2 DAYS. IT IS YOUR RESPONSIBILITY TO MAKE AN APPOINTMENT FOR FOLOW-UP CARE. IF YOU HAVE A PRIMARY DOCTOR --you should call your primary doctor and schedule an appointment IF YOU DO NOT HAVE A PRIMARY DOCTOR YOU CAN CALL OUR PHYSICIAN REFERRAL HOTLINE AT IF YOU CAN NOT AFFORD TO SEE A PHYSICIAN YOU CAN CHOSE FROM THE FOLLOWING [facility] [address] [facility] [address] [facility]. [facility] [address] [facility] [address] [facility] [facility] [address] [facility]. [facility] [address] [facility]. [facility] YOU HAVE RECEIVED A MEDICAL SCREENING EXAM AND THE RESULTS INDICATE THAT YOU DO NOT HAVE A CONDITION THAT REQUIRES URGENT TREATMENT IN THE EMERGENCY DEPARTMENT. FURTHER EVALUATION AND TREATMENT OF YOUR CONDITION CAN WAIT UNTIL YOU ARE SEEN IN YOUR DOCTORS OFFICE WITHIN THE NEXT 1-2 DAYS. IT IS YOUR RESPONSIBILITY TO MAKE AN APPOINTMENT FOR FOLOW-UP CARE. IF YOU HAVE A PRIMARY DOCTOR --you should call your primary doctor and schedule and appointment IF YOU DO NOT HAVE A PRIMARY DOCTOR YOU CAN CALL OUR PHYSICIAN REFERRAL HOTLINE AT . IF YOU CAN NOT AFFORD TO SEE A PHYSICIAN YOU CAN CHOSE FROM THE FOLLOWING [facility] INSTITUTIONS: [facility] [address] [place] [address] [facility] [address] [place] [address] [facility] [address] [place] [address] NETWORK ARCHITECT [employer] [address] [facility] [address] [place] [address] OFFICE FAX AMELIA DARNELL [address] [place] [phone] GUTIERREZ, [place] [address] [place] [address] DR GUAN, [facility] [address], [address], [facility] [address] [address] JOHNSON, [facility] [address] [facility] [place] [address] [facility] [address] [place] [address] [facility] [address] [address]IA[address] [facility] [address] [address], [facility] [address] [facility] [facility] [address] [address] [facility] [address] [place] [employer], [place] [address] Additional Instructions: Return to the ED for a wound recheck in 2 days. Return sooner for any new or worsening symptoms including fever, chills, warmth, swelling, redness. Call your primary care doctor/OBGYN TOMORROW for an appointment during the next 1-2 days.See the doctor sooner or return here if your condition worsens before your appointment time. FREDRICK ADAIR PA-C Aug 15, 2016 02:30
== END 2016-08-15 02:03 | disposition home or self-care (01) ==
LOC: FTE 22:33
DX: O86.0 Infection of obstetric surgical wound (principal); B96.89 Other specified bacterial agents as the cause of diseases classified elsewhere
CPT/HCPCS: 99283